=== PATIENT | female | born 1960 | race Caucasian/White ===

== ENCOUNTER → 2019-07-17 16:34 | Outpatient (CLI) | payer OTHER, SELFPAY ==
--- NOTE | ~2019-07-17 | MM_ITS ---
Corrected Report See Bolded Text Order # Associated 05/17/2020 [facility] EXAMINATION: MM screening [facility] BI w otilio HISTORY: Screening mammogram TECHNIQUE: Craniocaudal and mediolateral oblique 3-D tomosynthesis images were obtained and synthetic 2-D images were generated. CAD analysis was submitted and interpreted. COMPARISON: No prior mammogram is available for comparison at this institution. BREAST PARENCHYMAL COMPOSITION: There are scattered areas of fibroglandular density. FINDINGS: There is bilateral breast asymmetry, likely secondary to history of bilateral breast reduction surgery 20 or more years ago. Occasional benign calcifications are noted. Approximate 6 mm partially circumscribed mass is suggested in the lower mid left breast slightly medial to the mid sagittal plane on craniocaudal view. Comparison with prior mammogram examinations is recommended. If prior studies are not available, then diagnostic left mammogram and left breast ultrasound examination are recommended. IMPRESSION: 1. Bilateral breast asymmetry and 6 mm partially circumscribed mass in the lower mid left breast lying medial to mid sagittal plane on cc view. 2. Comparison with prior mammograms is recommended. If not available, diagnostic left mammogram and left breast ultrasound examination are recommended. BI-RADS Category 0: Incomplete: Needs additional imaging evaluation. Reviewed, dictated and finalized at location A. LC[employer] MTDD IMPRESSION: 1. Bilateral breast asymmetry and 6 mm partially circumscribed mass in the lowe r mid left breast lying medial to mid sagittal plane on cc view. 2. Comparison with prior mammograms is recommended. If not available, diagnosti c left mammogram and left breast ultrasound examination are recommended. BI-RADS Category 0: Incomplete: Needs additional imaging evaluation.
== END ==
PROVIDERS: Visit Provider Student in an Organized Health Care Education/Training Program
DX: Z12.31 Encounter for screening mammogram for malignant neoplasm of breast (principal); R92.8 Other abnormal and inconclusive findings on diagnostic imaging of breast
CPT/HCPCS: 77063; 77067

== ENCOUNTER → 2019-08-23 09:14 | Outpatient (CLI) | payer OTHER, SELFPAY ==
--- NOTE | ~2019-08-23 | MMUS_ITS ---
EXAMINATION: MM diagnostic mammo unilat LT, US breast LT limited HISTORY: Follow-up left breast mass TECHNIQUE: Additional 3-D tomosynthesis images of the left breast were performed and synthetic 2-D im ages were generated. CAD analysis was submitted and interpreted. High resolution left breast ultrasou nd was performed. COMPARISON: Comparison to multiple prior studies sequentially, with oldest reviewed study dated 01/31. FINDINGS: MAMMOGRAPHIC FINDINGS: Breast composed of scattered areas of fibroglandular density. There is a 6 mm mass in the lower centr al aspect of the left breast. There are no suspicious calcifications or architectural distortion. ULTRASOUND: Left breast ultrasound: At 3:00, 6 cm from the nipple there are 2 adjacent cysts, largest measuring 7 mm. At 5-6 o'clock, 3.5 cm from the nipple, there is an oval circumscribed hypoechoic mass measuring 8 x 4 x 5 mm with inter nal echoes. IMPRESSION: 1. Probable benign left breast mass at 5-6 o'clock, 3.5 cm from the nipple. 2. Recommend 6 month follow-up left breast ultrasound. BI-RADS category 3, probably benign findings. Reviewed, dictated and finalized at location A. IMPRESSION: 1. Probable benign left breast mass at 5-6 o'clock, 3.5 cm from the nipple. 2. Recommend 6 month follow-up left breast ultrasound. BI-RADS category 3, probably benign findings.
== END ==
PROVIDERS: Visit Provider Student in an Organized Health Care Education/Training Program
DX: R92.8 Other abnormal and inconclusive findings on diagnostic imaging of breast (principal)
CPT/HCPCS: 76642; 77065

== ENCOUNTER 2019-11-15 15:34 | Outpatient (CLI) | payer OTHER, SELFPAY ==
--- NOTE | ~2019-11-15 | CT_ITS ---
EXAMINATION: CT abdomen pelvis wo/w con DATE: 11/15/2019 16:21 INDICATION: Gross hematuria. TECHNIQUE: Computed tomography (CT) of the abdomen and pelvis was performed without and with intraven ous contrast using a total of 130 mL Omnipaque-350 intravenous contrast with a double-bolus technique for simultaneous opacification of the renal parenchyma and renal collecting system. Automated exposu re control and iterative reconstruction technique were employed. The dose-length product was 2275.90 mGy-cm. COMPARISON: CT abdomen and pelvis 01/18/2019 FINDINGS: The visualized portions of the lung bases demonstrate mild atelectasis. No pleural effusion. The hear t size is normal. No pericardial effusion. There is diffuse hepatic steatosis. The gallbladder, splee n, pancreas, adrenal glands, and kidneys are normal. There is no urolithiasis. The ureters are well o pacified and are normal. The bladder is not well distended. There is diverticulosis of the colon with out evidence of diverticulitis. There are no dilated loops of bowel. The appendix is normal. There ar e no pathologically enlarged lymph nodes. There is no free intraperitoneal fluid. There is mild lumba r spondylosis. IMPRESSION: 1. No etiology for hematuria. Bladder not well distended. Reviewed, dictated and finalized at location A.
== END 2019-11-15 15:35 | disposition home or self-care (01) ==
PROVIDERS: Visit Provider Urology
DX: R31.0 Gross hematuria (principal)
CPT/HCPCS: 74178; Q9967

== ENCOUNTER → 2020-03-02 14:55 | Outpatient (CLI) | payer OTHER, SELFPAY ==
--- NOTE | ~2020-03-02 | US_ITS ---
EXAMINATION: US breast LT limited HISTORY: Six-month follow-up for probably benign left breast masses TECHNIQUE: Limited left breast ultrasound is performed. COMPARISON: 08/22/2018 FINDINGS: There is a stable 9 mm x 4 mm oval, circumscribed, parallel, complex cystic and solid mass at the 6:00 location 3.5 cm from the nipple with posterior acoustic enhancement and no internal vascu larity. There our stable cysts at the 3:00 location 6 cm from the nipple and to the 6:00 location 5 c m from the nipple. IMPRESSION: Stable, probably benign sonographically detected left breast masses. Follow-up targeted left breast u ltrasound in six months is recommended. BI-RADS category 3, probably benign findings. Reviewed, dictated and finalized at location A. IMPRESSION: Stable, probably benign sonographically detected left breast masses. Follow-up targeted left breast ultrasound in six months is recommended. BI-RADS category 3, probably benign findings.
== END ==
PROVIDERS: Visit Provider Student in an Organized Health Care Education/Training Program
DX: R92.8 Other abnormal and inconclusive findings on diagnostic imaging of breast (principal)
CPT/HCPCS: 76642

== ENCOUNTER → 2020-03-04 15:50 | Outpatient (CLI) | payer OTHER, SELFPAY ==
--- NOTE | ~2020-03-04 | CT_ITS ---
EXAMINATION:CT lung screening DATE: 03/04/2020 16:27 INDICATION: Personal history of tobacco dependence. Smoker who quit 3 years ago with 35 pack year his tory. TECHNIQUE: Computed tomography (CT) of the chest was performed without intravenous contrast. Automate d exposure control and iterative reconstruction technique were employed. The dose-length product (DLP ) was 181.90 mGy-cm. COMPARISON: Chest CT 02/19/2019 FINDINGS: There is mild atelectasis bilaterally. No pleural effusion. The heart size is normal. There are coronary artery calcifications. No pericardial effusion. There is diffuse hepatic steatosis. The re is mild thoracic spondylosis. IMPRESSION: 1. Lung-RADS category 1: Negative. Continue annual screening with noncontrast low-dose chest CT in 12 months. Reviewed, dictated and finalized at location A. IMPRESSION: 1. Lung-RADS category 1: Negative. Continue annual screening with noncontrast l ow-dose chest CT in 12 months.
== END ==
DX: Z87.891 Personal history of nicotine dependence (principal)
CPT/HCPCS: G0297

== ENCOUNTER 2020-08-22 12:39 | Emergency (ER) | payer OTHER, SELFPAY ==
--- NOTE | ~2020-08-22 | CT_ITS ---
EXAMINATION: CT abdomen pelvis w con DATE: 08/22/2020 14:17 INDICATION: Bilateral lower quadrant tenderness. TECHNIQUE: Computed tomography (CT) of the abdomen and pelvis was performed with 100 mL Omnipaque-350 intravenous contrast. Automated exposure control and iterative reconstruction technique were employe d. The dose-length product was 1038.78 mGy-cm. COMPARISON: 11/15/2019 FINDINGS: Mild dependent atelectasis and mild bronchiectasis in the bilateral lower lobes. Heart size is normal . No pericardial or pleural effusion. There is wall thickening in the distal esophagus which could re late to esophagitis such as in the setting of reflux. Diffuse hepatic steatosis with focal sparing al claudia the arthur hepatis and gallbladder fossa. Gallbladder, spleen, pancreas, bilateral adrenal glands and kidneys are normal. Small bowel and appendix are normal. Mild scattered colonic diverticulosis. T here is focal edematous wall thickening at the sigmoid colon with surrounding inflammatory stranding centered at a diverticulum at the mid sigmoid colon consistent with diverticulitis. Fluid in the prox imal colon consistent with diarrhea. There is small amount of scattered likely reactive free fluid in the pelvis. No abscess or free intraperitoneal gas. Bladder is normal. Pessary in the vaginal vault. No pathologically enlarged abdominal or pelvic lymphadenopathy. Mild degenerative skeletal changes i n the spine and at both hips. IMPRESSION: 1. Radiographically uncomplicated sigmoid diverticulitis. 2. Mild wall thickening the distal esophagus which could be related to reflux including due to reflux . 3. Diffuse hepatic steatosis. Reviewed, dictated and finalized at location A. IMPRESSION: 1. Radiographically uncomplicated sigmoid diverticulitis. 2. Mild wall thickening the distal esophagus which could be related to reflux i ncluding due to reflux. 3. Diffuse hepatic steatosis.
[2020-08-22 12:48] VITALS: BP 132/73; PULSE 79; RESP 18; TEMP 36.9; O2SAT 98
[2020-08-22 13:15] LABS: Basophils Percent Auto 0.4 % (0.2-1.2); Eosinophils Percent Auto 0.2 % (0-4.4); Hematocrit 37.7 % (37.0-47.0); Hemoglobin 13.1 g/dL (12.0-15.0); Immature Granulocyte Absolute 0.03 K/mm3 (0.00-0.031); Immature Granulocyte Percent A 0.4 % (0-0.5); Lymphocytes Absolute Auto 1.61 K/mm3 (0.9-3.2); Lymphocytes Percent Auto 19.2 % (18.3-44.2); Mean Corpuscular HGB Conc 34.7 g/dl (32-36); Mean Corpuscular Volume 86.3 fl (80-100); Mean Platelet Volume 9.3 fl (7.4-10.4); Monocytes Absolute Auto 0.5 K/mm3 (0.1-0.6); Monocytes Percent Auto 5.4 % (2.6-8.5); Neutrophils Absolute Auto 6.3 K/mm3 (1.3-6.7); Neutrophils Percent Auto 74.4 % (45.5-73.1); Platelet Count Result 158 k/mm3 (150-375); Red Blood Count 4.37 M/mm3 (4.2-5.4); White Blood Count 8.4 K/mm3 (4.5-10.0)
[2020-08-22 13:21] LABS: Add Urine Microscopic? YES; Appearance Urine Clear (Clear); Bacteria Urine Trace /hpf; Bilirubin Urine Negative (Negative); Blood Urine 1+ (Negative); Color Urine Yellow (Yellow); Glucose Urine UA Negative (Negative); Ketones Urine Negative (Negative); Leukocyte Esterase Ur Negative LEU/UL (Negative); Mucus Urine Rare /lpf; Nitrate Urine Negative (Negative); Protein Urine 1+ mg/dL (Negative); RBC Urine 0-2 /hpf (0-2); Specific Grav Ur 1.011 (1.001-1.035); Squamous Epithelial Cell Urine Few /hpf (Few); Urobilinogen Urine Negative mg/dL (<2.0); WBC Urine 0-3 /hpf
[2020-08-22 13:29] LABS: Alanine Aminotransferase 46 U/L (4-35); Albumin Level 4.6 g/dL (3.5-5.1); Alkaline Phosphatase 64 U/L (38-126); Anion Gap 7 mmol/L (8-16); Aspartate Amino Transferase 36 U/L (14-36); Bilirubin,Total 0.6 mg/dL (0.2-1.3); Blood Urea Nitrogen 11 mg/dL (7-17); Calcium 10.1 mg/dL (8.4-10.2); Carbon Dioxide 29 mmol/L (22-30); Chloride 100 mmol/L (98-107); Estimated CRCL calculation 72 ml/min; Estimated Glomerular Filt Rate > 60; Glucose 130 mg/dL (65-105); Lipase 79 U/L (23-300); Potassium 4.4 mmol/L (3.4-5.0); Sodium 136 mmol/L (137-145)
[2020-08-22] MEDS: MORPHINE SULFATE (*CRX) 4 MG/ML INJ IV PUSH (13:58)
--- NOTE | 2020-08-22 15:07 | ED.ABDPAIN ---
HPI - Abdominal Pain General Chief Complaint: Abdominal Pain Stated Complaint: abd pain Time Seen by Provider: 08/22/20 13:28 History of Present Illness HPI narrative: Patient is a 60-year-old female who has history of diverticulitis that presents ER with lower abdominal pain. Progressing over the last 3 to 4 days. No fevers or chills or sweats. Reports mild constipation. No urinary symptoms. Has been trying [id number] pain medication without relief. Pain does not radiate and is worse with movement. Related Data Home Medications Medication Instructions Recorded Confirmed atorvastatin 40 mg tablet 40 mg PO DAILY 06/12/19 05/18/20 pantoprazole 40 mg tablet,delayed 40 mg PO QAM 06/12/19 05/18/20 release sertraline 100 mg tablet 100 mg PO DAILY 06/12/19 05/18/20 trazodone 150 mg tablet 150 mg PO HS 06/12/19 05/18/20 Allergies Allergy/AdvReac Type Severity Reaction Status Date / Time No Known Allergies Allergy Verified 08/22/20 13:22 Review of Systems Review of Systems: All systems reviewed & are unremarkable except as noted in HPI and below Constitutional: Constitutional: Denies chills, Denies fever(s) and Denies weakness Cardiovascular: Cardiovascular: Denies chest pain, Denies rapid heart rate and Denies radiating jaw, neck or arm pain Respiratory: Respiratory: Denies cough, Denies dyspnea and Denies wheezing Gastrointestinal: Gastrointestinal: Reports abdominal pain, Reports constipation, Denies diarrhea, Denies nausea and Denies vomiting PMFSH Past Medical History Medical History Adenomatous colon polyp Depression Diverticulosis Epigastric pain GERD (gastroesophageal reflux disease) High cholesterol Irritable bowel Surgical History Surgical History H/O bilateral breast reduction surgery H/O knee surgery H/O: hysterectomy [place] teeth removed Family History Family History Grandparent Carcinoma of colon Father Acute myocardial infarction High cholesterol Kidney malignancy Alzheimers disease Mother Diabetes mellitus Social History Social History Smoking packs per day: 0.5 Smoking cigarettes per day: 10.0 Years smoked: 30 Smoking pack-years: 15.00 Smoking status: Never smoker Tobacco type: cigarettes Alcohol intake: current Drinks per week: 2 Substance use: never Substance use type: does not use Gender identity (if verbalized by the patient): Female Spiritual care concerns: No Exam Narrative: Exam Narrative: GENERAL: Well-appearing, well-nourished, and in no acute distress. HEAD: Normocephalic, atraumatic. CHEST: Clear to auscultation. No respiratory distress. HEART: Regular rate and rhythm. Normal peripheral pulses. ABDOMEN: Soft, tender to palpation to bilateral lower quadrants with guarding, nondistended. EXTREMITIES: Normal range of motion. No edema. SKIN: Warm, dry, no rash. NEURO: Alert and oriented x3. PSYCH: Normal mood and affect. Course Course Emergency Course: Mild improvement in pain with morphine. Discharge home with Marixa Cagle Cipro, Flagyl. Discussed return precautions and patient verbalized understanding. Vital Signs Vital signs: Vital Signs Temperature 98.4 F 08/22/20 12:48 Pulse Rate 79 08/22/20 12:48 Respiratory Rate 18 08/22/20 12:48 Blood Pressure 132/73 08/22/20 12:48 Pulse Oximetry 98 08/22/20 12:48 Temperature 98.4 F 08/22/20 12:48 Pulse Rate 79 08/22/20 12:48 Respiratory Rate 18 08/22/20 12:48 Blood Pressure 132/73 08/22/20 12:48 Pulse Oximetry 98 08/22/20 12:48 MDM - Abdominal Pain Lab Data Result diagrams: 08/22/20 12:54 08/22/20 12:54 Labs: Lab Results 08/22/20 08/22/20 08/22/20 Range/Units 12:54 12:54 13
== END 2020-08-22 15:20 | disposition home or self-care (01) ==
PROVIDERS: Emergency Provider Emergency Medicine
DX: K57.32 Diverticulitis of large intestine without perforation or abscess without bleeding (principal); F32.9 Major depressive disorder, single episode, unspecified; K21.9 Gastro-esophageal reflux disease without esophagitis; E78.00 Pure hypercholesterolemia, unspecified; K58.9 Irritable bowel syndrome, unspecified; Z86.010 Personal history of colon polyps; F17.210 Nicotine dependence, cigarettes, uncomplicated; K76.0 Fatty (change of) liver, not elsewhere classified
CPT/HCPCS: 36415; 74177; 80053; 81001; 83690; 85025; 96374; 99284; J2270; Q9967

== ENCOUNTER → 2020-09-02 09:36 | Outpatient (CLI) | payer OTHER, SELFPAY ==
--- NOTE | ~2020-09-02 | DEXA_ITS ---
Bone Density Report Name: Sandra Palafox Age: 60 Sex: Female Ethnicity: White Date of : 1960 Indication: postmenopausal; screening for osteoporosis; hysterectomy; Referring Provider: Velma Daley Study: Bone densitometry was performed. Exam Date: September 02, 2020 Accession number: [id number] Bone Density: Region BMD T-score Z-score Classification AP Spine (L1-L4) 1.069 0.2 1.7 Normal Femoral Neck (Left) 0.753 -0.9 0.4 Normal Total Hip (Left) 0.884 -0.5 0.5 Normal Femoral Neck (Right) 0.718 -1.2 0.1 Osteopenia Total Hip (Right) 0.875 -0.6 0.4 Normal Total Hip Mean 0.880 -0.6 0.5 Normal World Health Organization criteria for BMD impression classify patients as: Normal (T-score at or above -1.0), Osteopenia (T-score between -1.0 and -2.5), or Osteoporosis (T-score at or below -2.5). 10-year Fracture Risk(1): Major Osteoporotic Fracture 7.0% Hip Fracture 0.5% Reported Risk Factors: [place] (), Neck BMD=0.718, BMI=33.5 (1) FRAX(R) Version 3.08. Fracture probability calculated for an untreated patient. Fracture probability may be lower if the patient has received treatment. Clinical Information Provided by Patient: Has the following medical conditions: Hysterectomy, Diverticulitus Patient maximum height was 65.2 Menopause Age: 40 No regular weight bearing exercise Drinks caffeinated beverages Onset of menses at age 13 Number of children 4 Impression: The patient has low bone mass, based on the Right Femoral Neck T-score. The patient has an estimated ten-year risk of hip fracture of 0.5% and an estimated ten-year risk of major fracture of 7%, based on the WHO FRAX algorithm. Discussion: BONE DENSITY IS LOW AT ONE OR MORE SKELETAL SITES. This patient's lowest T-score is low at one or more skeletal sites. It meets the World Health Organization's (WHO) criteria for ?low bone mass? (T-score between -1.0 and -2.5). The patient's 10-year risk of fracture as calculated by FRAX is less than the threshold where pharmacological therapy is recommended by the National Osteoporosis Foundation (NOF). However, all treatment decisions require clinical judgment and consideration of individual patient factors, including patient preferences, comorbidities, previous drug use, risk factors not captured in the FRAX model (e.g., frailty, falls, vitamin D deficiency, increased bone turnover, interval significant decline in bone density) and possible under or overestimation of fracture risk by FRAX. The patient should follow a healthful lifestyle (good nutrition with adequate calcium and vitamin D, and appropriate weight-bearing exercise). Follow-Up: Consider repeating this study in 2 to 3 years to reassess this patient's status, or sooner if there is some new clinical indication. Reporte
--- NOTE | ~2020-09-02 | MM_ITS ---
EXAMINATION: MM screening [facility] BI w otilio HISTORY: Screening mammogram TECHNIQUE: Craniocaudal and mediolateral oblique 3-D tomosynthesis images were obtained and synthetic 2-D images were generated. CAD analysis was submitted and interpreted. COMPARISON: 08/23/2019, 07/17/2019, 02/26/2015 BREAST PARENCHYMAL COMPOSITION: There are scattered areas of fibroglandular density. FINDINGS: There is a stable mass at the 6:00 location in the middle third of the lower left breast th e 6:00 location which is being followed by ultrasound. There is no evidence of new suspicious mass, calcification, or architectural distortion to suggest malignancy in either breast. There has been no suspicious interval change. IMPRESSION: 1. No new mammographic findings to suggest malignancy. Please refer to ultrasound recommendations for left breast mass follow-up. 2. Recommend routine screening mammography in one year. BI-RADS Category 2: Benign finding(s). Reviewed, dictated and finalized at location A. IMPRESSION: 1. No new mammographic findings to suggest malignancy. Please refer to ultrasou nd recommendations for left breast mass follow-up. 2. Recommend routine screening mammography in one year. BI-RADS Category 2: Benign finding(s).
--- NOTE | ~2020-09-02 | US_ITS ---
EXAMINATION: US breast LT limited HISTORY: Six-month follow-up for probably benign left breast mass TECHNIQUE: Limited left breast ultrasound was performed. COMPARISON: 03/02/2020, 08/23/2019 FINDINGS: There is a stable 8 x 4 mm oval, circumscribed parallel, complex cystic and solid mass at t he 6:00 location 3.5 cm from the nipple with posterior acoustic enhancement and no internal vasculari ty. Small cysts are noted at the 3:00 and 6:00 locations. IMPRESSION: Stable, probably benign sonographically detected left breast mass. Given one year of interval stabili ty, follow-up targeted left breast ultrasound in 12 months is recommended. BI-RADS category 3, probably benign findings. Reviewed, dictated and finalized at location A. IMPRESSION: Stable, probably benign sonographically detected left breast mass. Given one ye ar of interval stability, follow-up targeted left breast ultrasound in 12 month s is recommended. BI-RADS category 3, probably benign findings.
== END ==
PROVIDERS: Visit Provider Student in an Organized Health Care Education/Training Program
DX: Z12.31 Encounter for screening mammogram for malignant neoplasm of breast (principal); Z78.0 Asymptomatic menopausal state; R92.8 Other abnormal and inconclusive findings on diagnostic imaging of breast; M85.851 Other specified disorders of bone density and structure, right thigh
CPT/HCPCS: 76642; 77063; 77067; 77080